=== PATIENT | male | born 1990 | race African-American/Black ===

== ENCOUNTER 2016-11-30 08:14 | Emergency (ER) | payer MEDICAID, OTHER, SELFPAY ==
[~2016-11-30] VITALS: Ht 167.6 cm; Wt 84.0 kg
[2016-11-30] MEDS ORDERED: MECLIZINE CHEWABLE 25 MG TAB ONE (09:26)
[2016-11-30] MEDS ORDERED: METOCLOPRAMIDE 5 MG/ML, 2ML ONE (09:26)
[2016-11-30] MEDS ORDERED: SODIUM CHLORIDE FLUSH 10ML SYR IVF ONE (09:30)
[2016-11-30] MEDS ORDERED: MECLIZINE CHEWABLE 25 MG TAB PO ONE (09:30)
[2016-11-30] MEDS ORDERED: SODIUM CHLORIDE 0.9% 1,000ML IVBOLUS ONE ×2 (09:30→11:00)
[2016-11-30] MEDS ORDERED: METOCLOPRAMIDE 5 MG/ML, 2ML IVPush ONE (09:30)
[2016-11-30 09:42] LABS: BLOOD UREA NITROGEN 12 mg/dL (7-18)
[2016-11-30 09:47] LABS: HEMATOCRIT 49.3 % (39.2-51.8); HEMOGLOBIN 16.1 g/dL (13.7-18.0); WHITE BLOOD COUNT 7.3 x10^3/uL (3.4-10)
[2016-11-30] MEDS ORDERED: OMNIPAQUE 350 MG/ML, 100ML BOTTLE ONE ×2 (10:19→12:39)
[2016-11-30 12:25] VITALS: BP 123/82
== END 2016-11-30 12:28 | disposition home or self-care (01) ==
LOC: ED 08:46
DX: S16.1XXA Strain of muscle, fascia and tendon at neck level, initial encounter (principal); H69.93 Unspecified Eustachian tube disorder, bilateral; H81.13 Benign paroxysmal vertigo, bilateral; X50.9XXA Other and unspecified overexertion or strenuous movements or postures, initial encounter; Y93.89 Activity, other specified; Y92.89 Other specified places as the place of occurrence of the external cause; Y99.8 Other external cause status
CPT/HCPCS: 36415; 70450; 70498; 71275; 80048; 82040; 85025; 93005; 96361; 96374; 99285; J2765; J7030; Q9967